=== PATIENT | male | born 1995 | race Caucasian/White ===

== ENCOUNTER 2016-11-29 23:10 | Emergency (ER) | payer OTHER ==
[~2016-11-29 23:10] MED LIST: EPINEPHRINE INJ 1 MG/10 ML DISP.SYRIN ONE
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
== END 2016-11-29 23:50 | disposition expired ==
LOC: ER 23:10
PROC: 0W9900Z Drainage of Right Pleural Cavity with Drainage Device, Open Approach (ICD-10-PCS; principal; 2016-11-29)
DX: I46.9 Cardiac arrest, cause unspecified (principal); S09.90XA Unspecified injury of head, initial encounter; V87.7XXA Person injured in collision between other specified motor vehicles (traffic), initial encounter
CPT/HCPCS: 32551; 99285; 92950; J0171